=== PATIENT | male | born 1985 | race Caucasian/White ===

== ENCOUNTER 2021-02-22 13:30 | Emergency (ER) | payer OTHER, SELFPAY ==
[2021-02-22 13:41] VITALS: BP 131/92; PULSE 97; RESP 18; TEMP 36.8; O2SAT 97
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
== END 2021-02-22 16:08 | disposition home or self-care (01) ==
PROVIDERS: Emergency Provider Registered Nurse
DX: H10.9 Unspecified conjunctivitis (principal); Z87.891 Personal history of nicotine dependence
CPT/HCPCS: 99213; G0463